=== PATIENT | male | born 1990 | race Hispanic/Latino ===

== ENCOUNTER 2017-08-03 17:35 | Inpatient (IN) | payer SELFPAY ==
[~2017-08-03] VITALS: Ht 185.4 cm; Wt 172.0 kg
[2017-08-03 18:16] LABS: BASOPHILS % (AUTO) 0.2 % (0.0-5.0); EOSINOPHILS % (AUTO) 0.5 % (0.0-8.0); HEMATOCRIT 39.3 % (42-54); LYMPHOCYTES % (AUTO) 4.9 % (21.0-51.0); MEAN CORPUSCULAR HEMOGLOBIN 35.7 pg (27.0-33.0); MEAN CORPUSCULAR HGB CONC 33.7 g/dL (32.0-36.0); MONOCYTES % (AUTO) 5.9 % (3.0-13.0); NEUTROPHILS % (AUTO) 88.5 % (40.0-77.0); NUCLEATED RED BLOOD CELLS 0.1 % (0.0-0.19); PLATELET COUNT (AUTO) 186 K/uL (130-400); RED BLOOD CELL COUNT(AUTO) 3.71 MIL/uL (4.50-6.20); RED CELL DISTRIBUTION WIDTH 16.1 % (11.0-15.5); WHITE BLOOD COUNT (AUTO) 21.5 K/uL (4.8-10.8)
[2017-08-03] MEDS ORDERED: ONDANSETRON HCL 4 MG/2 ML VIAL ONE (18:24)
[2017-08-03 18:27] LABS: CREATININE 1.3 mg/dL (0.5-1.5); POTASSIUM 4.2 mmol/L (3.5-5.1)
[2017-08-03 18:35] LABS: ALBUMIN 2.9 g/dL (3.5-5.0); BILIRUBIN,TOTAL 9.1 mg/dL (0.2-1.0); TOTAL PROTEIN, SERUM 8.4 g/dL (6.0-8.3)
[2017-08-03] MEDS ORDERED: CEFTRIAXONE SODIUM 1 GM ONE (18:43)
[2017-08-03 21:06] LABS: APPEARANCE,URINE Turbid (CLEAR); BILIRUBIN,URINE Large (NEGATIVE); COLOR,URINE BROWN (YELLOW); GLUCOSE, URINE (UA) TRACE mg/dL (NEGATIVE); KETONES,URINE Negative (NEGATIVE); LEUKOCYTE ESTERASE ,URINE Small (NEGATIVE); NITRATE,URINE Positive (NEGATIVE); OCCULT BLOOD,URINE Trace (NEGATIVE); PROTEIN,URINE POS 1+ (NEGATIVE)
[2017-08-03 21:13] LABS: BACTERIA,URINE Moderate /HPF (None Seen); CALCIUM OXALATE CRYSTALS,UR Few /LPF (None Seen); MUCUS,URINE Moderate LPF (None Seen); RENAL EPITHELIAL CELLS,URINE Few /LPF (None Seen); TRANSITIONAL EPI CELLS,URINE Moderate /LPF (None Seen)
[2017-08-03] MEDS ORDERED: LACTULOSE 20 GM/30 ML UDCUP ONE (22:25)
[2017-08-03] MEDS ORDERED: SODIUM CHLORIDE 0.9% 100 ML IV ONE (22:54)
[2017-08-03] MEDS ORDERED: MORPHINE SULFATE 4 MG/1ML SYG IV PRN (23:45)
[2017-08-03] MEDS ORDERED: LIDOCAINE HCL-MPF 1% 2ML VIAL IVP PRN (23:45)
[2017-08-03] MEDS ORDERED: POTASSIUM CHLORIDE 20MEQ/100ML 100 ML IV PRN (23:45)
[2017-08-03] MEDS ORDERED: ONDANSETRON HCL 4 MG/2 ML VIAL IV PRN (23:45)
[2017-08-03] MEDS ORDERED: HYDRALAZINE HCL 20 MG/ML VIAL IV PRN (23:45)
[2017-08-03] MEDS ORDERED: MORPHINE SULFATE 2 MG/ML 1ML SYG IV PRN (23:45)
[2017-08-03] MEDS ORDERED: POTASSIUM CHLORIDE 10% ELIXIR 20 MEQ/15 ML UDCUP PO PRN (23:45)
[2017-08-03] MEDS ORDERED: MEROPENEM 500MG+NS 50ML 50 ML IV SCH (23:45)
[2017-08-04 00:28] LABS: AMPHET/METH SCREEN,URINE NEGATIVE (NEGATIVE); BARBITURATE SCREEN, URINE NEGATIVE (NEGATIVE); BENZODIAZEPINES SCREEN,URINE POSITIVE (NEGATIVE); CANNABINOID SCREEN,URINE POSITIVE (NEGATIVE); COCAINE SCREEN,URINE POSITIVE (NEGATIVE); OPIATE SCREEN,URINE POSITIVE (NEGATIVE); PHENCYCLIDINE SCREEN,URINE NEGATIVE (NEGATIVE)
[2017-08-04] MEDS ORDERED: MEROPENEM 1 GM VIAL ONE (02:00)
[2017-08-04] MEDS ORDERED: SODIUM CHLORIDE 0.9% 1000ML 1,000 ML IV ONE (02:00)
[2017-08-04] MEDS ORDERED: ONDANSETRON HCL 4 MG/2 ML VIAL ONE (04:27)
[2017-08-04] MEDS ORDERED: MORPHINE SULFATE 4 MG/1ML SYG ONE (04:28)
[2017-08-04] MEDS: MEROPENEM 500 MG VIAL IVP SCH ×3 (06:45→21:04)
[2017-08-04] MEDS ORDERED: GADOBENATE DIMEGLUMINE 20 ML IV ONE (08:32)
[2017-08-04 08:34] VITALS: BP 123/61
[2017-08-04 08:50] LABS: HEMATOCRIT 37.1 % (42-54); MEAN CORPUSCULAR HEMOGLOBIN 35.9 pg (27.0-33.0); MEAN CORPUSCULAR VOLUME 105.7 fL (79-99); PLATELET COUNT (AUTO) 164 K/uL (130-400); RED BLOOD CELL COUNT(AUTO) 3.51 MIL/uL (4.50-6.20); RED CELL DISTRIBUTION WIDTH 15.7 % (11.0-15.5); WHITE BLOOD COUNT (AUTO) 16.7 K/uL (4.8-10.8)
[2017-08-04 09:11] LABS: ALBUMIN 2.6 g/dL (3.5-5.0); BILIRUBIN,TOTAL 7.8 mg/dL (0.2-1.0); POTASSIUM 4.5 mmol/L (3.5-5.1); TOTAL PROTEIN, SERUM 7.8 g/dL (6.0-8.3)
[2017-08-04] MEDS: SODIUM CHLORIDE 0.9% 1000ML 1,000 ML IV SCH ×3 (09:42→19:42)
[2017-08-04] MEDS: PANTOPRAZOLE SODIUM 40 MG TABLET.DR PO SCH (10:41)
[2017-08-04 11:04] VITALS: BP 113/71
[2017-08-04] MEDS ORDERED: MORPHINE SULFATE 4 MG/1ML SYG IV PRN (16:15)
[2017-08-04 16:26] VITALS: BP 136/72
[2017-08-04] MEDS ORDERED: ACETAMINOPHEN 325 MG TAB ONE (17:53)
[2017-08-04 19:25] VITALS: BP 113/60
[2017-08-04] MEDS ORDERED: LACTULOSE 20 GM/30 ML UDCUP ONE (23:49)
[2017-08-04 23:55] VITALS: BP 150/73
[2017-08-05 03:40] VITALS: BP 135/74
[2017-08-05 05:20] LABS: HEMATOCRIT 35.3 % (42-54); MEAN CORPUSCULAR HEMOGLOBIN 36.1 pg (27.0-33.0); MEAN CORPUSCULAR HGB CONC 34.7 g/dL (32.0-36.0); PLATELET COUNT (AUTO) 153 K/uL (130-400); RED BLOOD CELL COUNT(AUTO) 3.39 MIL/uL (4.50-6.20); RED CELL DISTRIBUTION WIDTH 15.6 % (11.0-15.5); WHITE BLOOD COUNT (AUTO) 11.2 K/uL (4.8-10.8)
[2017-08-05 05:37] LABS: ALBUMIN 2.2 g/dL (3.5-5.0); BILIRUBIN,DIRECT 5.2 mg/dL (0.0-0.3); BILIRUBIN,TOTAL 6.3 mg/dL (0.2-1.0); CREATININE 0.7 mg/dL (0.5-1.5); POTASSIUM 3.6 mmol/L (3.5-5.1); TOTAL PROTEIN, SERUM 6.6 g/dL (6.0-8.3)
[2017-08-05] MEDS: SODIUM CHLORIDE 0.9% 1000ML 1,000 ML IV SCH ×2 (06:01→15:42)
[2017-08-05] MEDS: POTASSIUM CHLORIDE 20 MEQ ERTAB PO PRN (06:03)
[2017-08-05] MEDS: MEROPENEM 500 MG VIAL IVP SCH ×3 (06:18→22:29)
[2017-08-05 08:00] VITALS: BP 136/68
[2017-08-05 08:25] LABS: HEPATITIS A ANTIBODY IGM Negative (Negative); HEPATITIS B CORE IGM Negative (Negative); HEPATITIS Bs ANTIGEN SCREEN P Negative (Negative)
[2017-08-05] MEDS: PANTOPRAZOLE SODIUM 40 MG TABLET.DR PO SCH (09:03)
[2017-08-05] MEDS: LACTULOSE 20 GM/30 ML UDCUP PO SCH ×2 (09:03→20:20)
[2017-08-05 11:00] VITALS: BP 132/76
[2017-08-05] MEDS: ACETAMINOPHEN 325 MG TAB PO PRN ×2 (11:22→20:21)
[2017-08-05 16:00] VITALS: BP 111/71
[2017-08-05 20:23] VITALS: BP 134/54
[2017-08-06] VITALS (7 sets, daily range): BP systolic 115–136; BP diastolic 57–70
[2017-08-06] MEDS: SODIUM CHLORIDE 0.9% 1000ML 1,000 ML IV SCH (01:59)
[2017-08-06 05:03] LABS: HEMATOCRIT 35.9 % (42-54); MEAN CORPUSCULAR HEMOGLOBIN 35.9 pg (27.0-33.0); MEAN CORPUSCULAR HGB CONC 34.5 g/dL (32.0-36.0); MEAN CORPUSCULAR VOLUME 104.3 fL (79-99); PLATELET COUNT (AUTO) 169 K/uL (130-400); RED BLOOD CELL COUNT(AUTO) 3.45 MIL/uL (4.50-6.20); RED CELL DISTRIBUTION WIDTH 15.4 % (11.0-15.5); WHITE BLOOD COUNT (AUTO) 10.9 K/uL (4.8-10.8)
[2017-08-06 05:22] LABS: ALBUMIN 2.2 g/dL (3.5-5.0); BILIRUBIN,TOTAL 6.2 mg/dL (0.2-1.0); CREATININE 0.7 mg/dL (0.5-1.5); POTASSIUM 3.6 mmol/L (3.5-5.1); TOTAL PROTEIN, SERUM 6.5 g/dL (6.0-8.3)
[2017-08-06] MEDS: POTASSIUM CHLORIDE 20 MEQ ERTAB PO PRN (05:35)
[2017-08-06] MEDS: MEROPENEM 500 MG VIAL IVP SCH ×3 (05:35→21:56)
[2017-08-06] MEDS: LACTULOSE 20 GM/30 ML UDCUP PO SCH ×2 (09:54→21:57)
[2017-08-06] MEDS: PANTOPRAZOLE SODIUM 40 MG TABLET.DR PO SCH (09:54)
[2017-08-06] MEDS: THIAMINE HCL 100 MG TABLET PO SCH (12:54)
[2017-08-06] MEDS: FUROSEMIDE 20 MG TABLET PO SCH ×2 (12:54→21:57)
[2017-08-06] MEDS: LORAZEPAM 0.5 MG TABLET PO PRN (12:54)
[2017-08-07] VITALS (21 sets, daily range): BP systolic 99–152; BP diastolic 41–117
[2017-08-07 05:08] LABS: HEMATOCRIT 36.4 % (42-54); MEAN CORPUSCULAR HEMOGLOBIN 35.4 pg (27.0-33.0); MEAN CORPUSCULAR HGB CONC 34.2 g/dL (32.0-36.0); MEAN CORPUSCULAR VOLUME 103.3 fL (79-99); NUCLEATED RED BLOOD CELLS 0.1 % (0.0-0.19); PLATELET COUNT (AUTO) 163 K/uL (130-400); RED BLOOD CELL COUNT(AUTO) 3.52 MIL/uL (4.50-6.20); RED CELL DISTRIBUTION WIDTH 15.8 % (11.0-15.5); WHITE BLOOD COUNT (AUTO) 12.6 K/uL (4.8-10.8)
[2017-08-07 05:13] LABS: INR 1.53 (0.85-1.15); PROTHROMBIN TIME 15.9 SEC (9.6-11.6)
[2017-08-07 05:23] LABS: ALBUMIN 2.2 g/dL (3.5-5.0); BILIRUBIN,DIRECT 4.9 mg/dL (0.0-0.3); BILIRUBIN,TOTAL 6.7 mg/dL (0.2-1.0); CREATININE 0.7 mg/dL (0.5-1.5); POTASSIUM 3.4 mmol/L (3.5-5.1); TOTAL PROTEIN, SERUM 6.3 g/dL (6.0-8.3)
[2017-08-07 05:24] LABS: B-TYPE NATRIURETIC PEPTIDE 20 pg/mL (0-100)
[2017-08-07] MEDS: MEROPENEM 500 MG VIAL IVP SCH ×3 (06:05→20:36)
[2017-08-07] MEDS ORDERED: MIDAZOLAM HCL 1 MG/ML 2ML VIAL ONE (07:31)
[2017-08-07] MEDS: LORAZEPAM 0.5 MG TABLET PO PRN (08:59)
[2017-08-07] MEDS: LACTULOSE 20 GM/30 ML UDCUP PO SCH ×2 (09:00→20:37)
[2017-08-07] MEDS: THIAMINE HCL 100 MG TABLET PO SCH (09:00)
[2017-08-07] MEDS: PANTOPRAZOLE SODIUM 40 MG TABLET.DR PO SCH (09:01)
[2017-08-07] MEDS: FUROSEMIDE 20 MG TABLET PO SCH (09:01)
[2017-08-07] MEDS: POTASSIUM CHLORIDE 20 MEQ ERTAB PO PRN ×2 (09:05→09:06)
[2017-08-07] MEDS: SIMETHICONE 80 MG TAB.CHEW PO SCH ×3 (13:09→20:37)
[2017-08-08] VITALS: BP 121/62
[2017-08-08 04:00] VITALS: BP 119/67
[2017-08-08 04:55] LABS: HEMATOCRIT 36.2 % (42-54); MEAN CORPUSCULAR HEMOGLOBIN 35.4 pg (27.0-33.0); MEAN CORPUSCULAR HGB CONC 34.3 g/dL (32.0-36.0); MEAN CORPUSCULAR VOLUME 103.1 fL (79-99); PLATELET COUNT (AUTO) 152 K/uL (130-400); RED BLOOD CELL COUNT(AUTO) 3.51 MIL/uL (4.50-6.20); RED CELL DISTRIBUTION WIDTH 15.4 % (11.0-15.5); WHITE BLOOD COUNT (AUTO) 13.9 K/uL (4.8-10.8)
[2017-08-08 05:17] LABS: ALBUMIN 2.2 g/dL (3.5-5.0); BILIRUBIN,TOTAL 6.2 mg/dL (0.2-1.0); CREATININE 0.8 mg/dL (0.5-1.5); POTASSIUM 3.6 mmol/L (3.5-5.1); TOTAL PROTEIN, SERUM 6.4 g/dL (6.0-8.3)
[2017-08-08] MEDS: MEROPENEM 500 MG VIAL IVP SCH (05:57)
[2017-08-08 07:00] VITALS: BP 127/65
[2017-08-08] MEDS ORDERED: FUROSEMIDE 20 MG TABLET PO SCH (09:00)
[2017-08-08] MEDS: PANTOPRAZOLE SODIUM 40 MG TABLET.DR PO SCH (10:19)
[2017-08-08] MEDS: THIAMINE HCL 100 MG TABLET PO SCH (10:19)
[2017-08-08] MEDS: SIMETHICONE 80 MG TAB.CHEW PO SCH ×2 (10:19→12:37)
[2017-08-08] MEDS: LACTULOSE 20 GM/30 ML UDCUP PO SCH (10:19)
[2017-08-08] MEDS ORDERED: PANT40TA PO (10:23)
[2017-08-08 11:00] VITALS: BP 127/61
== END 2017-08-08 14:42 | disposition home or self-care (01) | DRG 433 ==
LOC: EDH 17:35 → EDHIP 17:36 → OBSVTOIN 17:36 → 4CH 08-04 07:40
PROVIDERS: ADMIT Internal Medicine; ATTEND Internal Medicine
PROC: 0DJ08ZZ Inspection of Upper Intestinal Tract, Via Natural or Artificial Opening Endoscopic (ICD-10-PCS; principal; 2017-08-07)
DX: K70.10 Alcoholic hepatitis without ascites (principal); K76.6 Portal hypertension; E66.01 Morbid (severe) obesity due to excess calories; Z68.43 Body mass index [BMI] 50.0-59.9, adult; D62 Acute posthemorrhagic anemia; N39.0 Urinary tract infection, site not specified; D64.9 Anemia, unspecified; F10.10 Alcohol abuse, uncomplicated; J40 Bronchitis, not specified as acute or chronic; F14.10 Cocaine abuse, uncomplicated; I10 Essential (primary) hypertension; F12.90 Cannabis use, unspecified, uncomplicated; F32.9 Major depressive disorder, single episode, unspecified; F41.9 Anxiety disorder, unspecified; K31.89 Other diseases of stomach and duodenum; K22.8 Other specified diseases of esophagus; K29.70 Gastritis, unspecified, without bleeding; Z87.891 Personal history of nicotine dependence
CPT/HCPCS: 36415; 74176; 74183; 76705; 80048; 80053; 80074; 80076; 80305; 81001; 82140; 82150; 82948; 83605; 83690; 83880; 85025; 85027; 85610; 86592; 86677; 87040; A4218; A9577; J0696; J2185; J2250; J2270; J2405; J7030